=== PATIENT | female | born 1960 | race Caucasian/White ===

== ENCOUNTER 2017-07-29 01:17 | Emergency (ER) | payer OTHER ==
[2017-07-29 01:23] VITALS: BP 155/81; PULSE 84; RESP 16; TEMP 97.9; O2SAT 95
[2017-07-29] MEDS ORDERED: CEPHALEXIN 500MG PREPACK#4 BTL TAKEHOME ONE (01:53)
[2017-07-29] MEDS ORDERED: CEPHALEXIN 500 MG CAP PO ONE (01:53)
[2017-07-29] MEDS ORDERED: SULFAMETHOX/TMP 800/160 MG 1 TAB PO ONE (01:54)
[2017-07-29] MEDS ORDERED: SULFAMET/TMP DS PREPACK#2 BTL TAKEHOME ONE (01:54)
--- NOTE | 2017-07-29 01:55 | EDPHY ---
H & P Stated Complaint: l knee redness/swelling pain post bursa removal 07/11 Time Seen by Provider: 07/29/17 01:33 HPI/ROS: HPI The patient presents with left-sided knee redness and pain for the last 2 days. The patient has a history of prepatellar bursa drainage for bursitis performed on July 11. Since then she has had drainage of the fluid from the bursa. A suture was placed and when it was removed, she continued to have drainage. The fluid is yellowish though sometimes a bit bloody. She denies any carmen pus. Over the last 2 days she has had worsening erythema overlying her anterior knee. She has had increased pain in notices some swelling overlying the knee cap. She has not any fevers or chills, nausea or vomiting. REVIEW OF SYSTEMS Constitutional: No fever, no chills. Eyes: No discharge. ENT: No sore throat. Musculoskeletal: No back pain. Skin: See HPI Neurological: No headache. PMHx: Hypertension, depression PHYSICAL General Appearance: Alert, no distress Eyes: Pupils equal and round no pallor or injection ENT, Mouth: Mucous membranes moist Respiratory: Breathing comfortably Neurological: A&O, moves all extremities Skin: Warm and dry, no rashes Musculoskeletal: Neck is supple non tender Extremities: Left knee with anterior erythema, warmth, tenderness to the touch , the prepatellar bursa is palpated and is not as edematous, there is a trace effusion, there is full range of motion of the knee Psychiatric: Patient is oriented X 3, there is no agitation Source: Patient Exam Limitations: No limitations - Personal History Current Tetanus/Diphtheria Vaccine: Yes - Medical/Surgical History Hx Asthma: No Hx Chronic Respiratory Disease: No Hx Diabetes: No Hx Cardiac Disease: Yes Hx Renal Disease: No Hx Cirrhosis: No Hx Alcoholism: No Hx HIV/AIDS: No Hx Splenectomy or Spleen Trauma: No Other PMH: HTN, depression - Social History Smoking Status: Never smoked Constitutional: Initial Vital Signs Temperature (C) 36.6 C 07/29/17 01:20 Heart Rate 84 07/29/17 01:20 Respiratory Rate 16 07/29/17 01:20 Blood Pressure 155/81 H 07/29/17 01:20 O2 Sat (%) 95 07/29/17 01:20 O2 Delivery Mode Room Air Allergies/Adverse Reactions: lisinopril [From Zestril] Allergy (Verified 07/29/17 01:23) Home Medications: Medication Instructions Recorded Cephalexin [Keflex (*)] 500 mg PO Q6H #28 cap 07/29/17 Effexor Xr PO DAILY 07/29/17 Losartan Potassium [Cozaar] 25 mg PO 07/29/17 Sulfamethox/Tmp 800/160 mg 1 tab PO BID #14 tab 07/29/17 [Bactrim Ds] buPROPion SR [Wellbutrin 150mg SR 150 mg PO BID 07/29/17 (*)] celeCOXIB [CeleBREX] 100 mg PO 07/29/17 Medical Decision Making Differential Diagnosis: 57-year-old female status post prepatellar bursa drainage performed on July 11, complicated by tract which has been draining yellowish fluid from the site of drainage, now with erythema of her anterior knee, warmth and tenderness. She does have good range of motion of her knee, thus I feel septic joint is unlikely. I feel she most likely has a cellulitis related to the tract which creates nidus for infection. As I doubt septic bursitis. Plan to treat with Keflex and Bactrim for cellulitis. We will demarcate the margins of the cellulitis. She will return if she is worse in any way. - Data Points Medications Given: Discontinued Medications Cephalexin (Keflex 500 Mg Prepack#4) 1 btl TAKEHOME EDNOW ONE PRN Reason: Protocol Stop: 07/29/17 01:54 Last Admin: 07/29/17 02:13 Dose: 1 btl Cephalexin HCl (Keflex) 500 mg PO EDNOW ONE PRN Reason: Protocol Stop: 07/29/17 01:54 Last Admin: 07/29/17 02:12 Dose: 500 mg Trimethoprim/Sulfamethoxazole (Bactrim Ds Prepack#2) 1 btl TAKEHOME EDNOW ONE Stop: 07/29/17 01:55 Last Admin: 07/29/17 02:14 Dose: 1 btl Trimethoprim/Sulfamethoxazole (Bactrim Ds) 1 ea PO EDNOW ONE PRN Reason: Protocol Stop: 07/29/17 01:55 Last Admin: 07/29/17 02:12 Dose: 1 ea Departure - Departure Disposition: Home, Routine, Self-Care Clinical Impression: Cellulitis of left knee Condition: Good Instructions: Cephalexin (By mouth), Sulfamethoxazole/Trimethoprim (By mouth), Cellulitis (ED) Additional Instructions: Please return to the emergency department or see your regular doctor if the redness expands or if you develop increasing pain or swelling. Referrals: DR SCOTTY [Other] - As per Instructions Prescriptions: Cephalexin [Keflex (*)] 500 mg PO Q6H #28 cap Sulfamethox/Tmp 800/160 mg [Bactrim Ds] 1 tab PO BID #14 tab
== END 2017-07-29 02:16 | disposition home or self-care (01) ==
DX: L03.116 Cellulitis of left lower limb (principal); I10 Essential (primary) hypertension